=== PATIENT | female | born 1995 | race Caucasian/White ===

== ENCOUNTER → 2020-11-05 13:55 | Outpatient (BNVA) | payer OTHER, MEDICAID, SELFPAY | PROVIDERS: Visit Provider Advanced Practice Midwife | DX: Z34.90 Encounter for supervision of normal pregnancy, unspecified, unspecified trimester (principal) | CPT/HCPCS: 99212 ==

== ENCOUNTER 2020-11-06 10:54 | Outpatient (REF) | payer OTHER, MEDICAID, SELFPAY ==
--- NOTE | 2020-11-06 11:06 | US_ITS ---
EXAMINATION: US OBSTETRICAL CLINICAL INFORMATION: 25-year-old at 18.2 weeks of gestation Suspected anomaly COMPARISON: 07/23/2018 TECHNIQUE: Real-time transabdominal ultrasound was performed using C1-5 megahertz transducer. FINDINGS: A single, active, fetus is seen in breech presentation. The placenta is anterior without previa, and the amniotic fluid volume is wnl. MEASUREMENTS: 1. Biparietal Diameter: 4.36 cm; 19 point wks 2. Occipital Frontal Diameter: 5.64 cm 3. Head Circumference: 16.4 cm; 19.1 wks 4. Abdominal Circumference: 13.1 cm; 18.5 wks 5. Femur Length: 2.9 cm; 19.0 wks 6. Humerus Length: 2.8 cm; 19.0 wks 7. Tibia Length: 2.36 cm; 18.3 wks 8. Ulna Length: 2.51 cm; 19.1 wks 9. Lateral ventricle: 0.64 cm 10. Cerebellum: 1.93 cm; 19.6 wks 11. Cisterna Magna: 0.34 cm 12. Nuchal Fold: 3.65 mm 13. Heart Rate: 156 beats per minute Rt ovary: normal Lt ovary: normal Cervical length 3.6 cm on T/A. GESTATIONAL AGE: 1. Established GA: 18.2 wks 2. GA from [facility]: 19.1 wks ESTIMATED DATE OF DELIVERY: 1. Established KATHARINA: 04/07/2021 2. KATHARINA from [facility]: 04/01/2021 ANATOMY: Isolated echogenic intracardiac focus The visualized anatomy includes but not limited to: 1. Cranium: Normal 2. Intracranial anatomy: cavum septum pellucidi, lateral ventricles, choroid plexus, cerebellum, posterior fossa, third and fourth ventricles. 3. face: orbits, lip/palate, profile, nasal bone 4. Heart: four-chamber view of the heart showed an echogenic intracardiac focus. Rest of the cardiac anatomy was within normal limits: Ventricular septum, foramen ovale, pulmonary vein, left and right outflow tracts, three-vessel view, 3 vessel trachea view, aortic and ductal arches, situs.. 5. Diaphragm: Normal 6. Abdominal wall: Normal 7. Cord Insertion: Normal 8. Spine: Cervical, thoracic, lumbar, sacral. 9. Stomach: Normal size and shape 10. Right Kidney: Normal 11. Left Kidney: Normal 12. 3 vessel cord: Normal 13. Upper extremity: Open hands, fifth digit. 14. Lower extremity: Tibia, fibula, bilateral feet. 15. Bladder: Normal 16. Genitalia: Male, patient aware US/US OB /maternal detail IMPRESSION: 1. Single, living, intrauterine with appropriate biometry. 2. Isolated EIF. Otherwise normal survey. DISCUSSION: I reviewed today's ultrasound findings. Echogenic intracardiac focus has been reported to be more frequent than fetuses with Down syndrome at this gestational age. However the likelihood ratio is only 1:2. In the setting of low NIPT, an isolated EIF is considered a normal variant. She is scheduled to have the N IPT drawn today. Aside from its association with Down syndrome, the clinical significance of EIF is unclear. We discussed the limitations of ultrasound in diagnosing aneuploidy and other congenital abnormalities. I reviewed the differences between screening test and diagnostic test. Amniocentesis was discussed and declined. She was informed that the baseline incidence of congenital abnormalities is approximately 3-5%. Not all these conditions are diagnosable in utero. RECOMMENDATIONS: 1. Follow-up as clinically indicated. 2. NIPT today as planned. Thank you for allowing me to participate in her care. Visiting time 30 minutes. Majority of this visit was spent reviewing and discussing her care.
[2020-11-06 13:01] LABS: MANUAL DIFF FLAG NO
[2020-11-06 13:38] LABS: Basophils Percent Auto 0.2 % (0-2); Eosinophils Absolute Auto 0.1 X10*3/uL (0.0-0.4); Eosinophils Percent Auto 0.6 % (0-4); Hematocrit 33.1 % (37-47); Imm Gran Abs Auto 0.06 X10*3/uL (0.00-0.03); Imm Gran Pct Auto 0.6 % (0.0-0.4); Lymphocytes Absolute Auto 1.8 X10*3/uL (1.2-4.9); Lymphocytes Percent Auto 17.2 % (20-40); Mean Corpuscular HGB Conc 33.2 g/dl (31.0-35.0); Mean Corpuscular Hemoglobin 29.8 pg (27.0-33.0); Mean Corpuscular Volume 89.7 fL (80-98); Mean Platelet Volume 11.2 fL (9.4-12.3); Monocytes Absolute Auto 0.5 X10*3/uL (0.1-1.2); Monocytes Percent Auto 4.7 % (2-11); Neutrophils Absolute Auto 7.9 X10*3/uL (2.0-8.3); Neutrophils Percent Auto 76.7 % (45-73); Platelet Count 235 X10*3/uL (160-400); Red Blood Count 3.69 X10*6/uL (4.20-5.50); Red Cell Distribution Width 12.8 % (11.0-16.0); White Blood Count 10.2 X10*3/uL (4.8-10.8)
[2020-11-06 13:41] LABS: Amphetamine Screen Urine Not Detected (Not Detect); Barbiturates, Urine Not Detected (Not Detect); Benzodiazepines Screen Urine Not Detected (Not Detect); Cannabinoid Screen Urine Not Detected (Not Detect); Cocaine Screen Urine Not Detected (Not Detect); Opiate Screen Urine Not Detected (Not Detect); Phencyclidine Screen Urine Not Detected (Not Detect)
[2020-11-06 13:48] LABS: Syphilis Screen Nonreactive (Nonreactive)
[2020-11-07 13:37] LABS: Rubella IgG Antibody 4.09 Index
[2020-11-09 03:37] LABS: HBsAGNum1 0.13 S/CO (0.00-0.99); HIV AB/AG Nonreactive (Nonreactive); HIV Num 1 0.06 S/CO (0.00-0.99); Hepatitis B Surface Antigen Negative (Negative)
[2020-11-09 03:48] LABS: ~HepC Num1 0.05 S/CO (0.00-0.79); ~Hepatitis C Antibody Nonreactive (Nonreactive)
== END 2020-11-06 10:55 | disposition home or self-care (01) ==
LOC: HO.US 10:54
PROVIDERS: Advanced Practice Midwife; Visit Provider Advanced Practice Midwife
DX: Z34.90 Encounter for supervision of normal pregnancy, unspecified, unspecified trimester (principal)
CPT/HCPCS: 36415; 76811; 80307; 85025; 86762; 86780; 86787; 86803; 86850; 87086; 87340; 87389

== ENCOUNTER 2020-11-17 12:01 | Outpatient (REF) | payer OTHER, MEDICAID, SELFPAY ==
[2020-11-18 08:03] LABS: BV Int Neg Control Negative (Negative); BV Int Pos Control Positive (Positive)
[2020-11-18 14:17] LABS: N. gonorrhoeae RNA TMA NOT DETECTED (NOT DETECTED)
[2020-11-19 15:22] LABS: C. trachomatis RNA TMA NOT DETECTED (NOT DETECTED)
== END 2020-11-17 12:02 | disposition home or self-care (01) ==
LOC: HO.LAB 12:01
PROVIDERS: Visit Provider Advanced Practice Midwife
DX: Z34.80 Encounter for supervision of other normal pregnancy, unspecified trimester (principal)
CPT/HCPCS: 81003; 87480; 87491; 87510; 87591; 87660; 88142; 99212

== ENCOUNTER → 2020-12-15 12:13 | Outpatient (BNVA) | payer OTHER, MEDICAID, SELFPAY | PROVIDERS: Visit Provider Advanced Practice Midwife | DX: Z76.89 Persons encountering health services in other specified circumstances (principal) | CPT/HCPCS: 99212 ==

== ENCOUNTER 2021-01-27 11:04 | Outpatient (REF) | payer OTHER, MEDICAID, SELFPAY | END 2021-01-27 11:05 | disposition home or self-care (01) | LOC: HO.LAB 11:04 | PROVIDERS: Visit Provider Advanced Practice Midwife | DX: O35.8XX0 Maternal care for other (suspected) fetal abnormality and damage, not applicable or unspecified (principal); Z3A.30 30 weeks gestation of pregnancy | CPT/HCPCS: 81003; 99212 ==

== ENCOUNTER 2021-01-29 09:50 | Outpatient (REF) | payer OTHER, MEDICAID, SELFPAY ==
--- NOTE | ~2021-01-29 | US_ITS ---
EXAMINATION: OBSTETRICAL ULTRASOUND, Follow up HISTORY: 25-year-old at the 30.2 weeks of gestation Size date discrepancy EIF COMPARISON: 11/06/2020 TECHNIQUE: Real time transabdominal imaging with color and M-mode Doppler. PRESENTATION: Vertex PLACENTA LOCATION: Anterior without previa AMNIOTIC FLUID: D PETROLOGIST 6.2 cm MEASUREMENTS: 1. Biparietal Diameter: 8.1 cm; 32.3 wks 2. Head Circumference: 29.4 cm; 32.3 wks 3. Abdominal Circumference: 26.0 cm; 30.1 wks 4. Femur Length: 5.9 cm; 30.6 wks 5. Heart Rate: 160 beats per minute WEIGHT: EFW: 1629 grams (3 lbs 9 oz) -- 53 %. Following views were within normal limits: Posterior fossa, lateral ventricles, four-chamber view of the heart, stomach, urinary bladder and kidneys. Resolving EIF is seen in the left ventricle. BIOPHYSICAL PROFILE: Motion: 2 Tone: 2 Breathin Amniotic Fluid: 2 Total score: 8/8 GESTATIONAL AGE: 1. Established GA: 30.2 wks 2. GA from [facility]: 31.4 wks ESTIMATED DATE OF DELIVERY: 1. Established KATHARINA: 04/07/2021 2. KATHARINA from [facility]: 03/29/2021 US/US OB follow up IMPRESSION: 1. A single active fetus is in vertex presentation 2. Size equals dates 3. Resolving EIF Thank you very much for this referral. This note was generated with a voice recognition program. Please excuse any errors which may have been overlooked during my review of this note. Sometimes these errors may affect the content or meaning of a given sentence.
== END 2021-01-29 09:51 | disposition home or self-care (01) ==
LOC: HO.US 09:50
PROVIDERS: Visit Provider Advanced Practice Midwife
DX: Z36.3 Encounter for antenatal screening for malformations (principal)
CPT/HCPCS: 76816

== ENCOUNTER → 2021-02-15 10:15 | Outpatient (BNVA) | payer OTHER, MEDICAID, SELFPAY | PROVIDERS: Visit Provider Advanced Practice Midwife | DX: Z34.93 Encounter for supervision of normal pregnancy, unspecified, third trimester (principal); Z3A.32 32 weeks gestation of pregnancy | CPT/HCPCS: 81003; 99212 ==

== ENCOUNTER 2021-02-18 10:33 | Outpatient (REF) | payer OTHER, MEDICAID, SELFPAY ==
[2021-02-18 12:31] LABS: Hemoglobin 11.6 g/dl (12.0-16.0); Mean Corpuscular HGB Conc 34.1 g/dl (31.0-35.0); Mean Corpuscular Hemoglobin 29.6 pg (27.0-33.0); Mean Corpuscular Volume 86.7 fL (80-98); Platelet Count 162 X10*3/uL (160-400); Red Blood Count 3.92 X10*6/uL (4.20-5.50); Red Cell Distribution Width 13.3 % (11.0-16.0); White Blood Count 11.3 X10*3/uL (4.8-10.8)
[2021-02-18 12:36] LABS: Glucose 1 Hour PP 50gm Dose 165 mg/dL (60-140)
[2021-02-19 04:32] LABS: Syphilis Screen Nonreactive (Nonreactive)
[2021-02-19 04:46] LABS: HIV AB/AG Nonreactive (Nonreactive); HIV Num 1 0.05 S/CO (0.00-0.99)
== END 2021-02-18 10:34 | disposition home or self-care (01) ==
LOC: HO.LAB 10:33
PROVIDERS: Visit Provider Advanced Practice Midwife
DX: Z34.80 Encounter for supervision of other normal pregnancy, unspecified trimester (principal)
CPT/HCPCS: 36415; 85027; 86780; 87389

== ENCOUNTER → 2021-03-02 11:31 | Outpatient (BNVA) | payer OTHER, MEDICAID, SELFPAY | PROVIDERS: Visit Provider Advanced Practice Midwife | DX: Z34.90 Encounter for supervision of normal pregnancy, unspecified, unspecified trimester (principal); Z3A.34 34 weeks gestation of pregnancy | CPT/HCPCS: 81003; 99212 ==

== ENCOUNTER 2021-03-03 09:22 | Outpatient (REF) | payer OTHER, MEDICAID, SELFPAY ==
[2021-03-03 10:50] LABS: Glucose Fasting 89 mg/dL (60-99)
[2021-03-03 17:24] LABS: Glucose 3 Hour 154 mg/dL
[2021-03-03 17:24] LABS: Glucose 2 Hour 207 mg/dL
[2021-03-03 17:24] LABS: Glucose 1 Hour 241 mg/dL
== END 2021-03-03 09:23 | disposition home or self-care (01) ==
LOC: HO.LAB 09:22
PROVIDERS: Visit Provider Advanced Practice Midwife
DX: O99.810 Abnormal glucose complicating pregnancy (principal)
CPT/HCPCS: 36415; 82951

== ENCOUNTER → 2021-03-08 15:10 | Outpatient (BNVA) | payer OTHER, MEDICAID, SELFPAY | PROVIDERS: Visit Provider Obstetrics & Gynecology ==

== ENCOUNTER 2021-03-22 10:29 | Outpatient (REF) | payer OTHER, MEDICAID, SELFPAY ==
[2021-03-22 16:56] LABS: CT PCR NOT DETECTED (Not Detect.); NG PCR NOT DETECTED (Not Detect.)
== END 2021-03-22 10:30 | disposition home or self-care (01) ==
LOC: HO.LAB 10:29
PROVIDERS: Visit Provider Advanced Practice Midwife
DX: Z34.92 Encounter for supervision of normal pregnancy, unspecified, second trimester (principal); Z20.2 Contact with and (suspected) exposure to infections with a predominantly sexual mode of transmission
CPT/HCPCS: 81003; 87081; 87491; 87591; 99212

== ENCOUNTER → 2021-03-30 09:39 | Outpatient (BNVA) | payer OTHER, MEDICAID, SELFPAY | PROVIDERS: Visit Provider Advanced Practice Midwife | DX: Z34.93 Encounter for supervision of normal pregnancy, unspecified, third trimester (principal); Z3A.38 38 weeks gestation of pregnancy | CPT/HCPCS: 81003; 99212 ==

== ENCOUNTER → 2021-04-06 10:37 | Outpatient (BNVA) | payer OTHER, MEDICAID, SELFPAY | PROVIDERS: Visit Provider Advanced Practice Midwife | DX: O99.810 Abnormal glucose complicating pregnancy (principal); Z3A.39 39 weeks gestation of pregnancy | CPT/HCPCS: 81003; 99212 ==